=== PATIENT | male | born 1945 | race Asian ===

== ENCOUNTER 2023-01-14 09:37 | Day surgery (SDC) | payer OTHER ==
[2023-01-10 09:58] VITALS: BMI 24.1
[2023-01-14] MEDS ORDERED: PROPOFOL 40 ML ONE (13:18)
== END 2023-01-14 14:28 | disposition home or self-care (01) ==
LOC: CSHSDC 09:37
PROVIDERS: ATTEND Internal Medicine Gastroenterology
PROC: 0DJD8ZZ Inspection of Lower Intestinal Tract, Via Natural or Artificial Opening Endoscopic (ICD-10-PCS; principal; 2023-01-14)
DX: Z12.11 Encounter for screening for malignant neoplasm of colon (principal); R14.0 Abdominal distension (gaseous); K64.9 Unspecified hemorrhoids; A63.0 Anogenital (venereal) warts; K21.9 Gastro-esophageal reflux disease without esophagitis; Z79.899 Other long term (current) drug therapy
CPT/HCPCS: J2704